=== PATIENT | male | born 1965 | race Two or more races ===

== ENCOUNTER 2022-04-23 12:42 | Emergency (ER) | payer OTHER ==
[~2022-04-23] VITALS: Ht 180.3 cm; Wt 105.7 kg
[2022-04-23] MEDS ORDERED: ATACAND32 MG (13:33)
[2022-04-23] MEDS ORDERED: AZOR 5-20 MG T1 EACH (13:33)
[2022-04-23] MEDS ORDERED: ECOTRIN81 MG (13:33)
[2022-04-23] MEDS ORDERED: LIPITOR20 MG PO (13:33)
[2022-04-23] MEDS ORDERED: JANUMET 50-1,01 EACH PO (13:34)
[2022-04-23] MEDS ORDERED: LOVAZA1 GM PO (13:34)
[2022-04-23] MEDS ORDERED: PROTONIX20 MG PO (13:36)
[2022-04-23] MEDS ORDERED: HYDROCORT 2.5%-30 GM TP (13:36)
[2022-04-23] MEDS ORDERED: PEPCID AC10 MG PO (13:36)
[2022-04-23] MEDS ORDERED: POLY119PG PO (18:33)
[2022-04-23] MEDS ORDERED: ANUSOL-HC30 G2 TOP (18:33)
== END 2022-04-23 19:19 | disposition home or self-care (01) ==
LOC: ER 12:42
DX: K62.5 Hemorrhage of anus and rectum (principal)